=== PATIENT | male | born 1975 | race Caucasian/White ===

== ENCOUNTER 2022-05-07 13:21 | Inpatient (IN) | payer OTHER ==
[~2022-05-07] VITALS: Ht 175.3 cm; Wt 80.3 kg
[2022-05-07] MEDS ORDERED: ISOVUE-370 76% 100ML VIAL As Ordered ONE (14:11)
[2022-05-07 14:44] LABS: INR 0.85
[2022-05-07 14:45] LABS: PARTIAL THROMBOPLASTIN TIME 27.4 SECONDS (25.9-37.0)
[2022-05-07 15:46] LABS: CK-MB VALUE MASS < 1.0 NG/ML (<3.6); CPK CREATINE PHOSPHOKINASE 139 U/L (39-308); MB/CK RELATIVE INDEX 0.72 (< OR =4)
[2022-05-07] MEDS ORDERED: HOME MED LIST COMPLETE! XX SCH (17:15)
[2022-05-07] MEDS ORDERED: HEPARIN SOD (PORCINE) 5000UNITS/ML 1ML VIAL/SYRINGE IV PRN (17:50)
[2022-05-07] MEDS ORDERED: MOM 30ML SUSPENSION UDC PO PRN (17:55)
[2022-05-07] MEDS ORDERED: ACETAMINOPHEN TAB 650MG DOSE (2X325MG) PO PRN (17:55)
[2022-05-07] MEDS ORDERED: MAALOX 30 ML SUSP *UDC PO PRN (17:55)
[2022-05-07] MEDS ORDERED: HEPARIN SOD (PORCINE) 5000UNITS/ML 1ML VIAL/SYRINGE IV ONE (18:00)
[2022-05-07 18:02] LABS: RSV AMPLIFICATION NEGATIVE (NEGATIVE)
[2022-05-07] MEDS: HEPARIN DRIP 25,000 UNITS in IV 1 EA IV SCH (18:50)
[2022-05-07 21:11] LABS: BASO # 0.1 10^3/uL (0.0-0.2); BASO % 0.7 % (0.0-1.0); EOS # 0.1 10^3/uL (0.0-0.5); EOS % 1.5 % (0.0-3.0); HEMATOCRIT 43.1 % (42.0-52.0); HEMOGLOBIN 14.4 g/dl (13.5-17.5); LYMPH # 1.5 10^3/uL (1.5-5.0); LYMPH % 20.1 % (24.0-44.0); MEAN CORPUSCULAR HEMOGLOBIN 32.1 pg (27.0-33.0); MEAN CORPUSCULAR HGB CONC 33.4 g/dl (32.0-36.5); MEAN CORPUSCULAR VOLUME 96.2 fl (80.0-96.0); MONO # 0.7 10^3/uL (0.0-0.8); NEUTROPHILS % 68.3 % (36.0-66.0); PLATELET COUNT, AUTOMATED 294 10^3/uL (150-450); RED BLOOD COUNT 4.48 10^6/uL (4.30-6.10); WHITE BLOOD COUNT 7.4 10^3/uL (4.0-10.0)
[2022-05-07 21:19] LABS: CK-MB VALUE MASS < 1.0 NG/ML (<3.6); CPK CREATINE PHOSPHOKINASE 123 U/L (39-308); MB/CK RELATIVE INDEX 0.81 (< OR =4)
[2022-05-07 21:21] VITALS: BP 129/80
[2022-05-07 21:30] LABS: ALBUMIN 3.6 GM/DL (3.2-5.2); ALT/SGPT 64 U/L (12-78); BILIRUBIN,DIRECT 0.2 MG/DL (0.0-0.2); BILIRUBIN,TOTAL 0.9 MG/DL (0.2-1.0); BLOOD UREA NITROGEN 13 MG/DL (7-18); CARBON DIOXIDE LEVEL 24 MEQ/L (21-32); CHLORIDE LEVEL 104 MEQ/L (98-107); CREATININE FOR GFR 0.86 MG/DL (0.70-1.30); GLOMERULAR FILTRATION RATE > 60.0 (>60); GLUCOSE, FASTING 154 MG/DL (70-100); LIPASE 155 U/L (73-393); POTASSIUM SERUM 3.9 MEQ/L (3.5-5.1); SODIUM LEVEL 138 MEQ/L (136-145); TOTAL PROTEIN 6.9 GM/DL (6.4-8.2)
[2022-05-08 04:00] VITALS: BP 130/84
[2022-05-08 07:11] LABS: BASO % 0.6 % (0.0-1.0); EOS # 0.1 10^3/uL (0.0-0.5); EOS % 2.2 % (0.0-3.0); HEMATOCRIT 46.7 % (42.0-52.0); HEMOGLOBIN 15.4 g/dl (13.5-17.5); LYMPH # 1.2 10^3/uL (1.5-5.0); LYMPH % 19.2 % (24.0-44.0); MEAN CORPUSCULAR HEMOGLOBIN 32.3 pg (27.0-33.0); MEAN CORPUSCULAR VOLUME 97.9 fl (80.0-96.0); MONO # 0.6 10^3/uL (0.0-0.8); MONO % 9.4 % (2.0-8.0); NEUTROPHILS # 4.3 10^3/uL (1.5-8.5); NEUTROPHILS % 68.1 % (36.0-66.0); PLATELET COUNT, AUTOMATED 294 10^3/uL (150-450); RED BLOOD COUNT 4.77 10^6/uL (4.30-6.10); WHITE BLOOD COUNT 6.3 10^3/uL (4.0-10.0)
[2022-05-08 07:25] LABS: PARTIAL THROMBOPLASTIN TIME 63.6 SECONDS (25.9-37.0)
[2022-05-08] MEDS: HEPARIN DRIP 25,000 UNITS in IV 1 EA IV SCH (07:30)
[2022-05-08 07:40] LABS: ALT/SGPT 57 U/L (12-78); BILIRUBIN,TOTAL 0.8 MG/DL (0.2-1.0); BLOOD UREA NITROGEN 12 MG/DL (7-18); CALCIUM LEVEL 9.4 MG/DL (8.5-10.1); CARBON DIOXIDE LEVEL 29 MEQ/L (21-32); CHLORIDE LEVEL 105 MEQ/L (98-107); CREATININE FOR GFR 0.78 MG/DL (0.70-1.30); GLOMERULAR FILTRATION RATE > 60.0 (>60); GLUCOSE, FASTING 88 MG/DL (70-100); POTASSIUM SERUM 4.1 MEQ/L (3.5-5.1); SODIUM LEVEL 141 MEQ/L (136-145); TOTAL PROTEIN 6.6 GM/DL (6.4-8.2)
[2022-05-08 08:17] LABS: D-DIMER QUANT 3497.84 ng/ml (<500)
[2022-05-08 08:21] LABS: C REACTIVE PROTEIN QUANTITATIV 0.64 MG/DL (0.00-0.30)
[2022-05-08 08:25] LABS: CK-MB VALUE MASS < 1.0 NG/ML (<3.6); CPK CREATINE PHOSPHOKINASE 82 U/L (39-308); MB/CK RELATIVE INDEX 1.22 (< OR =4)
[2022-05-08] MEDS ORDERED: REMDESIVIR 200 MG in NS 250 ML IV ONE (10:00)
[2022-05-08] MEDS ORDERED: EPINEPHrine INJ 1 MG/ML 1ML AMP IM PRN (10:10)
[2022-05-08] MEDS ORDERED: ALBUTEROL SULFATE 2.5 MG/0.5 ML INH NEB SOLN INH PRN (10:10)
[2022-05-08] MEDS ORDERED: methylPREDNISolone 125MG 2ML VIAL IV PRN (10:10)
[2022-05-08] MEDS ORDERED: NS 1,000 ML IV SCH (10:10)
[2022-05-08] MEDS ORDERED: diphenhydrAMINE 50MG/ML VIAL (J1200) IV PRN (10:10)
[2022-05-08] MEDS ORDERED: ALBUTEROL 90 MCG/ACT 8GM HFA INHALER INH PRN (10:10)
[2022-05-08] MEDS ORDERED: VENTAER INH (10:59)
[2022-05-08] MEDS ORDERED: ELIQ5TAB PO ×3 (10:59→11:52)
[2022-05-08] MEDS ORDERED: BEBTELOVIMAB 175MG 2ML VIAL (EUA) IV ONE (12:00)
[2022-05-08] MEDS ORDERED: SODIUM CHLORIDE 0.9% INJ 10 ML SYR IV ONE (12:00)
[2022-05-09] MEDS ORDERED: REMDESIVIR 100 MG in NS 250 ML IV SCH (10:00)
[2022-05-09] MEDS ORDERED: SODIUM CHLORIDE 0.9% INJ 10 ML SYR IV SCH (11:00)
[2022-05-12 11:30] LABS: DRVV SCREEN 38.9 SEC
[2022-05-15 12:08] LABS: ANTI THROMBIN 3 ANTIGEN IMMUNO 77 % (72-124); ANTI THROMBIN 3 FUNCT ACTIVITY 95 % (75-135); CARDIOLIPIN IGA ANTIBODY <9 APL U/mL (0-11); CARDIOLIPIN IGG ANTIBODY <9 GPL U/mL (0-14); CARDIOLIPIN IGM ANTIBODY >150 MPL U/mL (0-12); PROTEIN C FUNCTIONAL ACTIVITY 96 % (73-180); PROTEIN S FUNCTIONAL ACTIVITY 120 % (63-140)
== END 2022-05-08 12:20 | disposition home or self-care (01) | DRG 175 ==
LOC: M ED 13:21 → M ED INP 17:52 → M 4MAIN 20:52
PROVIDERS: ADMIT Family Medicine; ATTEND Family Medicine
PROC: XW033E5 Introduction of Remdesivir Anti-infective into Peripheral Vein, Percutaneous Approach, New Technology Group 5 (ICD-10-PCS; principal; 2022-05-08)
DX: I26.99 Other pulmonary embolism without acute cor pulmonale (principal); U07.1 COVID-19; I82.402 Acute embolism and thrombosis of unspecified deep veins of left lower extremity; G43.909 Migraine, unspecified, not intractable, without status migrainosus

== ENCOUNTER → 2022-07-27 | Outpatient (CLI) | payer OTHER ==
[~2022-07-27] MED LIST: ELIQ5TAB PO; VENTAER INH
[2022-07-27 13:21] LABS: BASO % 0.5 % (0.0-1.0); EOS # 0.1 10^3/uL (0.0-0.5); EOS % 1.9 % (0.0-3.0); HEMOGLOBIN 16.5 g/dl (13.5-17.5); LYMPH % 16.9 % (24.0-44.0); MEAN CORPUSCULAR HEMOGLOBIN 33.2 pg (27.0-33.0); MEAN CORPUSCULAR VOLUME 100.6 fl (80.0-96.0); MONO # 0.6 10^3/uL (0.0-0.8); MONO % 9.6 % (2.0-8.0); NEUTROPHILS # 4.2 10^3/uL (1.5-8.5); NEUTROPHILS % 70.8 % (36.0-66.0); PLATELET COUNT, AUTOMATED 255 10^3/uL (150-450); RED BLOOD COUNT 4.97 10^6/uL (4.30-6.10); WHITE BLOOD COUNT 5.9 10^3/uL (4.0-10.0)
== END ==
LOC: M PLALAB 10:27
PROVIDERS: ATTEND Internal Medicine Hematology
DX: I82.90 Acute embolism and thrombosis of unspecified vein (principal)
CPT/HCPCS: 36415; 81240; 83090; 85025; 85240; 85300; 85303; 85306; 85379; 85598; G0463

== ENCOUNTER → 2023-01-24 | Outpatient (CLI) | payer OTHER | LOC: M CARPUL 11:07 | PROVIDERS: ATTEND Internal Medicine Pulmonary Disease | DX: R06.00 Dyspnea, unspecified (principal) ==

== ENCOUNTER → 2023-03-01 | Outpatient (CLI) | payer OTHER | LOC: M CARPUL 13:40 | PROVIDERS: ATTEND Internal Medicine Pulmonary Disease | DX: R06.00 Dyspnea, unspecified (principal) | CPT/HCPCS: 88738; 94060; 94726; 94729; G0463 ==

== ENCOUNTER → 2023-04-14 | Outpatient (CLI) | payer OTHER | LOC: M RAD 15:20 | PROVIDERS: ATTEND Otolaryngology | DX: J32.0 Chronic maxillary sinusitis (principal) ==

== ENCOUNTER 2023-06-27 10:40 | Day surgery (SDC) | payer OTHER ==
[~2023-06-27] VITALS: Ht 170.2 cm; Wt 85.2 kg
[~2023-06-27 10:40] MED LIST changes: +FLUT1BLS2 IH; +LISI10TA22 PO; +WARF-22 PO
[2023-06-27 11:27] LABS: INR 1.27; PROTHROMBIN TIME 16.2 SECONDS (12.5-14.5)
[2023-06-27] MEDS ORDERED: LR 1,000 ML IV SCH ×3 (12:20→16:15)
[2023-06-27] MEDS ORDERED: MIDAZOLAM INJ 2MG/2ML VIAL As Ordered ONE (12:45)
[2023-06-27] MEDS ORDERED: propofoL 200 MG/20 ML VIAL As Ordered ONE ×2 (12:45→14:03)
[2023-06-27] MEDS ORDERED: fentaNYL 100 MCG/2 ML INJECTION As Ordered ONE (12:45)
[2023-06-27] MEDS ORDERED: ONDANSETRON 4MG 2ML VIAL As Ordered ONE (12:45)
[2023-06-27] MEDS ORDERED: ROCURONIUM BROMIDE 50MG/5ML VIAL As Ordered ONE (12:46)
[2023-06-27] MEDS ORDERED: SUGAMMADEX SODIUM 500 MG/5 ML VIAL (BRIDION) As Ordered ONE (12:46)
[2023-06-27] MEDS ORDERED: LIDOCAINE 2% 100MG/5ML SDV (FOR ANES.) As Ordered ONE (12:46)
[2023-06-27] MEDS ORDERED: LIDOCAINE W/EPINEPHRINE 1% 20ML VIAL As Ordered ONE (13:28)
[2023-06-27] MEDS: EPINEPHrine 1MG/ML INJ 30ML MD-VIAL As Ordered ONE (14:46)
[2023-06-27] MEDS: POVIDONE-IODINE 5% OPHTH PREP SOL 30ML As Ordered ONE ×2 (14:46→14:47)
[2023-06-27] MEDS ORDERED: BACITRACIN OINTMENT 30GM TUBE As Ordered ONE (15:21)
[2023-06-27] MEDS ORDERED: ONDANSETRON 4MG 2ML VIAL IV PRN (15:30)
[2023-06-27] MEDS ORDERED: oxyCODONE 5MG TAB PO PRN (15:30)
[2023-06-27] MEDS ORDERED: HYDROMORPHONE HCL 0.5 MG/ 0.5 ML SYRINGE IV PRN (15:30)
[2023-06-27] MEDS ORDERED: fentaNYL 100 MCG/2 ML INJECTION IV PRN (15:30)
[2023-06-27] MEDS: AUGMENTIN 875 MG TAB PO ONE (16:27)
[2023-07-22] MEDS ORDERED: SILD25TA2 PO (10:43)
[2023-07-22] MEDS ORDERED: TOPI-254 PO (11:08)
[2023-07-22] MEDS ORDERED: TOPI25TA10 PO (11:08)
== END 2023-06-27 16:36 | disposition home or self-care (01) ==
LOC: M SDC 10:40
PROVIDERS: ATTEND Otolaryngology
DX: M79.5 Residual foreign body in soft tissue (principal); G47.30 Sleep apnea, unspecified; F17.220 Nicotine dependence, chewing tobacco, uncomplicated; Z79.01 Long term (current) use of anticoagulants; Z79.899 Other long term (current) drug therapy
CPT/HCPCS: 10120; 36415; 76000; 85610; 88300; J0171; J1100; J2250; J2405; J3010

== ENCOUNTER 2023-07-27 12:20 | Day surgery (SDC) | payer OTHER ==
[~2023-07-27] VITALS: Ht 175.3 cm; Wt 84.7 kg
[~2023-07-27 12:20] MED LIST changes: +NS 1,000 ML IV ONE; +SILD25TA2 PO; +TOPI-254 PO; +TOPI25TA10 PO
[2023-07-27 14:46] VITALS: TEMP 99.3
[2023-07-27 15:09] VITALS: BP 124/79; O2SAT 97
== END 2023-07-27 15:24 | disposition home or self-care (01) ==
LOC: M OPP 12:20
PROVIDERS: ATTEND Internal Medicine Gastroenterology
DX: Z12.11 Encounter for screening for malignant neoplasm of colon (principal); K64.0 First degree hemorrhoids; K64.4 Residual hemorrhoidal skin tags; K63.89 Other specified diseases of intestine; K63.3 Ulcer of intestine; K57.30 Diverticulosis of large intestine without perforation or abscess without bleeding; F17.220 Nicotine dependence, chewing tobacco, uncomplicated; G47.33 Obstructive sleep apnea (adult) (pediatric); Z79.01 Long term (current) use of anticoagulants; Z79.51 Long term (current) use of inhaled steroids; Z79.899 Other long term (current) drug therapy